=== PATIENT | female | born 1965 | race Caucasian/White ===

== ENCOUNTER 2023-01-22 10:54 | Outpatient (RCR) | payer OTHER | END 2023-02-11 | LOC: OT 10:54 | PROVIDERS: ATTEND Plastic Surgery | DX: M19.042 Primary osteoarthritis, left hand (principal); M65.30 Trigger finger, unspecified finger ==

== ENCOUNTER 2023-11-03 18:20 | Emergency (ER) | payer OTHER ==
[~2023-11-03] VITALS: Ht 165.1 cm; Wt 113.1 kg
[2023-11-03 18:54] VITALS: PULSE 95; RESP 18; TEMP 97.7
[2023-11-03] MEDS ORDERED: METOPROLOL SUCC50 MG PO (19:40)
[2023-11-03] MEDS ORDERED: FAMOTIDINE20 MG PO (19:40)
[2023-11-03] MEDS ORDERED: ATIVAN0.5 MG PO (19:40)
[2023-11-03] MEDS ORDERED: HYDROCHLOROTH12.5 MG (19:40)
[2023-11-03] MEDS ORDERED: VITAMIN D3125 MCG (19:40)
[2023-11-03] MEDS: IBUPROFEN 600 MG TAB PO STA (21:17)
[2023-11-03] MEDS ORDERED: CEPHALEXIN500 MG PO (22:03)
[2023-11-03] MEDS ORDERED: ULTRAM 50MG50 MG PO (22:04)
[2023-11-03 22:45] VITALS: BP 151/74; PULSE 73; RESP 18; TEMP 98.6; O2SAT 99
== END 2023-11-03 22:25 | disposition home or self-care (01) ==
LOC: FSED 18:25
DX: L03.114 Cellulitis of left upper limb (principal); S90.812A Abrasion, left foot, initial encounter; S20.212A Contusion of left front wall of thorax, initial encounter; S80.01XA Contusion of right knee, initial encounter; W01.0XXA Fall on same level from slipping, tripping and stumbling without subsequent striking against object, initial encounter; Y93.01 Activity, walking, marching and hiking; Y92.89 Other specified places as the place of occurrence of the external cause; I10 Essential (primary) hypertension; K21.9 Gastro-esophageal reflux disease without esophagitis; F41.9 Anxiety disorder, unspecified
CPT/HCPCS: 71101; 99283